=== PATIENT | female | born 1985 | race Caucasian/White ===

== ENCOUNTER 2018-02-09 11:56 | Emergency (ER) | payer OTHER ==
[2018-02-09 12:26] VITALS: BMI 24.9
[2018-02-09] MEDS ORDERED: Albuterol 0.083% Inhal Sol (2.5 mg/3 mL) UD ONE (13:40)
--- NOTE | 2018-02-11 14:17 | OBHP ---
Datetime: 02/09/2018 12:35 IP Adm Impression: , intrauterine ; No Active Labor; Intact Membranes IP Admit Plan: Discharge home Admit Comment, IP Provider: 32 yo F EGA 20.3 based on MARQUIS of 06/26/2018 presents to the PREM wi th vaginal spotting of blood, cough, productive sputum and fever. Reports spotting since the morning . Denies profuse vaginal bleeding. Fever, cough and productive yellow sputum for 3 days. Taken tyleno l x2 thismorning and Temp was 97.5. +: FM, ; denies: lof, ctx, cp/sob/n/v/dysuria OB: Dr. Douglas Last sexual activity: since dx of obhx: uncomplicated gyne: denies hx of STI, pap neg Med Hx: hypothyroid and RA Rx: Levothyroxine 125 mcg 6 days/week; pnv Famhx: DM/HTN/dyslipidemia Surg: none soc: Denies: smoking, alcohol, illicit drugs NKDA A: AAOX3, Cardiac: s1s2 no murmurs Lungs: phlegmatous cough abdomen: gravid doppler: hr 152 Speculum: no pooling of amniotic fluid in vaginal vault. No vaginal bleeding Pelvic: cervix closed. negative for CMT P:32 yo F IUP 20.3. No Active Bleeding. Afebrile; stable Dc to ER for flu eval case dw Dr. Cammie Rodrigues MD PGY1. Pt was seen and discussed with the Patient and I agree with the above. Pelvic Type - PN: Adequate Extremities - PN: Normal Abdomen - PN: Normal Back - PN: Normal Breast - PN: Not Done Lungs - PN: Normal Heart - PN: Normal Thyroid - PN: Not Done Neurologic - PN: Normal HEENT - PN: Normal General - PN: Normal FHR - Baseline A Provider: 152 Pool Provider: Negative EGA AdmitDate IP: 20.3 Vital Signs Provider: Reviewed; Within Normal Limits IP Chief Complaint: Vaginal bleeding; Maternal discomfort Dilatation, Provider: closed Genitourinary Exam: Normal DTRs - PN: Not Done
== END 2018-02-09 13:00 | disposition home or self-care (01) ==
LOC: H.EROB2 11:56
DX: O26.853 Spotting complicating pregnancy, third trimester (principal); Z3A.20 20 weeks gestation of pregnancy; O99.89 Other specified diseases and conditions complicating pregnancy, childbirth and the puerperium; R05 Cough; R50.9 Fever, unspecified

== ENCOUNTER 2018-02-09 13:10 | Emergency (ER) | payer OTHER ==
[2018-02-09 13:11] VITALS: BMI 24.9
[2018-02-09 13:15] VITALS: BP 109/79; PULSE 96; RESP 18; TEMP 97.8; O2SAT 99
[2018-02-09] MEDS ORDERED: Albuterol 0.083% Inhal Sol (2.5 mg/3 mL) UD IH STA (13:34)
--- NOTE | 2018-02-09 14:38 | ED PDOC ---
History of Present Illness History of Present Illness: 32 y/o female who is 20 weeks presents to the ED with a flu like symptoms. Patient was cleared by by L & D prior to arrival. She admits to having a fever in the past week for 3 days which has subsided. Maximum temperature was 100.5. Patient complains of a productive cough for the past five days. Otherwise: (-) vomit (-) diarrhea (-) chest pain, (-) dyspnea, (-) SOB, (-) travel HPI: Influenza Time Seen by Provider: 02/09/18 13:31 Chief Complaint: Flu-like Symptoms Chief Complaint (Provider): Flu-like Symptoms History Per: Patient Exam Limitations: no limitations Have you had recent travel within the past 21 days to any of: No Onset/Duration Of Symptoms: Days (x5) Risk factors for flu complications: Yes: (20 weeks) Past Medical History Reviewed: Historical Data, Nursing Documentation, Vital Signs Vital Signs: Last Vital Signs Temp 97.8 F 02/09/18 13:12 Pulse 96 H 02/09/18 13:12 Resp 18 02/09/18 13:12 BP 109/79 02/09/18 13:12 Pulse Ox 99 02/09/18 13:12 - Medical History PMH: No Chronic Diseases - Surgical History Surgical History: No Surg Hx - Family History Family History: States: Unknown Family Hx - Social History Current smoker - smoking cessation education provided: No Ex-Smoker (has not smoked in the last 12 months): No Alcohol: None Drugs: Denies - Home Medications Home Medications: Ambulatory Orders Medication Instructions Recorded Albuterol 0.083% [Albuterol 3 ml IH Q4 #100 neb 02/09/18 Sulfate 3 Ml] Azithromycin [Zithromax] 250 mg PO DAILY #4 tab 02/09/18 Levothyroxine [Synthroid] 125 mcg PO QD6 02/09/18 Nebulizer [Aeroeclipse II] 1 each MC DAILY #1 each 02/09/18 Multivit/Folic Acid/I 1 tab PO DAILY 02/09/18 [ Plus] - Allergies Allergies/Adverse Reactions: Allergies Allergy/AdvReac Type Severity Reaction Status Date / Time No Known Allergies Allergy Verified 02/09/18 12:26 Review of Systems ROS Statement: Except As Marked, All Systems Reviewed And Found Negative Constitutional: Positive for: Fever (Has subsided) Cardiovascular: Negative for: Chest Pain Respiratory: Positive for: Cough (x5 days), Other (Difficulty Breathing). Negative for: Shortness of Breath Gastrointestinal: Negative for: Vomiting, Diarrhea Physical Exam - Reviewed Nursing Documentation Reviewed: Yes Vital Signs Reviewed: Yes - Physical Exam Comments: GENERAL APPEARANCE: Patient is awake, alert, oriented x 3, in no acute distress. SKIN: Warm, dry; (-) cyanosis. EYES: (-) conjunctival pallor. ENMT: Mucous membranes moist. Airway patent: (-) stridor. Pharynx: (-) swelling, (-) erythema, (-) exudate. NECK: (-) tenderness, (-) stiffness, (-) lymphadenopathy. CHEST AND RESPIRATORY: (+) slight wheeze bilaterally, (-) rhonchi, (-) rales, ( -) pleural rub; breath sounds equal bilaterally. HEART AND CARDIOVASCULAR: (-) irregularity; (-) murmur, (-) gallop. ABDOMEN AND GI: Soft; gravid abdomen, (-) tenderness. EXTREMITIES: (-) deformity; (-) edema. NEURO AND PSYCH: Mental status as above. Cranial nerves grossly intact; strength symmetric. Medical Decision Making Medical Decision Making: Time: 13:12 Impression: Bronchitis r/o influenza Initial Plan: * Nebulizer Treatment Albuterol 2.5 mg IH * Influenza Test Patient remains awake, alert, oriented x 3 and is sitting comfortably, speaking in full sentences. On exam, neck is supple, lungs are clear, abdomen is soft and non tender, heart is at regular rate and rhythm. Advised to follow up with OBGYN. Advised to take medication as prescribed. Return to the emergency room at any time for any new or worsening symptoms. Patient states she fully agrees with and understands discharge instructions. States that she agrees with the plan and disposition. Verbalized and repeated discharge instructions and plan. I have given the patient opportunity to ask any additional questions. Scribe Attestation: Documented by Lora Arevalo acting as a scribe Rocio Lambert PA-C. Scribe Attestation: All medical record entries made by the Scribe were at my direction and personally dictated by me. I have reviewed the chart and agree that the record accurately reflects my personal performance of the history, physical exam, medical decision making, and the department course for this patient. I have also personally directed, reviewed, and agree with the discharge instructions and disposition. - ECG O2 Sat by Pulse Oximetry: 99 (RA) Pulse Ox Interpretation: Normal Disposition - Clinical Impression Clinical Impression: Bronchitis - Patient ED Disposition Is Patient to be Admitted: No Counseled Patient/Family Regarding: Diagnosis, Need For Followup, Rx Given - Disposition Disposition: Routine/Home Disposition Time: 15:00 Condition: STABLE Additional Instructions: Thank you for letting us take care of you today. You were treated for acute bronchitis. The emergency medical care you received today was directed at your acute symptoms. If you were prescribed any medication, please fill it and take as directed. It may take several days for your symptoms to resolve. Return to the Emergency Department if your symptoms worsen, do not improve, or if you have any other problems. Please contact your OB doctor in 2 days for re-evaluation and follow up. Bring any paperwork you were given at discharge with you along with any medications you are taking to your follow up visit. Our treatment cannot replace ongoing medical care by a primary care provider (PCP) outside of the emergency department. Thank you for allowing the [facility] team to be part of your care today. Prescriptions: Albuterol 0.083% [Albuterol Sulfate 3 Ml] 3 ml IH Q4 #100 neb Azithromycin [Zithromax] 250 mg PO DAILY #4 tab Nebulizer [Aeroeclipse II] 1 each MC DAILY #1 each Instructions: Acute Bronchitis Forms: [employer] (Lao), [facility] ED School/Work Excuse
== END 2018-02-09 15:21 | disposition home or self-care (01) ==
LOC: H.ER 13:10
DX: J40 Bronchitis, not specified as acute or chronic (principal); Z33.1 Pregnant state, incidental

== ENCOUNTER 2018-02-27 00:03 | Emergency (ER) | payer OTHER ==
[2018-02-27] MEDS ORDERED: Lactated Ringer's 1,000 ML IV SCH ×2 (01:15→02:45)
[2018-02-27 02:11] LABS: HEMOGLOBIN 11.4 g/dL (12.0-16.0); MEAN CELL VOLUME 87.5 fl (81.0-99.0); MEAN CORPUSCULAR HEMOGLOBIN 28.8 pg (27.0-31.0); MEAN CORPUSCULAR HGB CONC 32.9 g/dL (33.0-37.0); RBC 3.95 Mil/uL (3.80-5.20); WHITE BLOOD COUNT 10.4 K/uL (4.8-10.8)
[2018-02-27 02:12] LABS: BASO # 0.1 K/uL (0.0-0.2); BASO % 0.7 % (0.0-2.0); EOS # 0.1 K/uL (0.0-0.7); EOS % 1.2 % (0.0-4.0); LYMPH # 3.1 K/uL (1.0-4.3); MEAN PLATELET VOLUME 9.2 fl (7.2-11.7); MONO # 0.8 K/uL (0.0-0.8); MONO % 7.7 % (0.0-10.0); NEUT # 6.3 K/uL (1.8-7.0); NEUT % 60.4 % (50.0-75.0); NRBC % 0.1 % (0.0-0.0)
[2018-02-27 03:33] LABS: SQUAMOUS EPITHIAL < 1 /hpf (0-5); URINE BILIRUBIN NEGATIVE (NEGATIVE); URINE BLOOD SMALL (NEGATIVE); URINE CLARITY SLIGHTY-CLOUDY (Clear); URINE COLOR YELLOW (YELLOW); URINE GLUCOSE (UA) NEG (Normal); URINE LEUKOCYTE ESTERASE NEG Leu/uL (Negative); URINE PROTEIN NEGATIVE (NEGATIVE); URINE UROBILINOGEN 0.2-1.0 mg/dL (0.2-1.0)
--- NOTE | 2018-02-27 07:38 | OBHP ---
Datetime: 02/27/2018 00:57 IP Adm Impression: , intrauterine IP Admit Plan: Observation/Evaluation Admit Comment, IP Provider: CC: vaginal bleeding HPI: 32 YO @ 22.1 wks IUP presents to PREM for vaginal bleeding. Pt states that lst night around 10:00PM pt had 1x episode of abdominal pain which subsequently resolved. The pain was followed by 1x of "gush of blood" from pts vagina around 11:20 PM. Blood is qunatified as 1 light pad-ful. Pt states that she does not have any more vaginal bleeding, or pain at this time. Good FM, no LOF (per pt), no ctx. MD: Rafael ObHx: 1 SAB in the past GynHx: denies STIs PMH: hypothyroidism SurgHx: denies SH: denies ETOH, smoking and illicit drug use Allergies: NKDA Meds: PNV and levothyroxine 125mg PE: GEN: nervous, NAD Cardio: S1S2 no additional heart sounds resp: clear breath sounds b/l Abdomen: gravid, NT, BS+ Neuro: AAOx3 Ext: no edema noted, NT FM: 145, Cervx speculum: small clot of blood noted in the vaginal vault, cervix is closed A/P: 32 YO @ 22.1 IUP (MARQUIS 07/02) is evaluated for vaginal bleeing. Not currently bleeding, -ob limited ultrasound -IVF -Blood work -UA -will continue to monitor Case discussed with attending, Dr. Enrico Rangel, PGY I OB Hospitalist note: Pt seen and examined with PGY1...agree with note. obtain sono this morning/C LM MAHNDO Pelvic Type - PN: Adequate Extremities - PN: Normal Abdomen - PN: Normal Breast - PN: Not Done Lungs - PN: Normal Heart - PN: Normal Thyroid - PN: Not Done Neurologic - PN: Normal HEENT - PN: Normal General - PN: Normal FHR - Baseline A Provider: 145 Pool Provider: Negative IP Hx Assessment: The History has been Reviewed and is Current EGA AdmitDate IP: 22.1 Vital Signs Provider: Reviewed IP Chief Complaint: Vaginal bleeding NICHD Variability Prov Fetus A: NICHD Accel Fetus A IP Provider: FHR Category Provider Fetus A: Dilatation, Provider: closed Genitourinary Exam: Normal
--- NOTE | 2018-02-27 09:24 | US ---
PROCEDURE: OB Pelvic Ultrasound HISTORY: vaginal bleeding LMP: 09/25/2017 COMPARISON: None available. TECHNIQUE: Transabdominal scanning of the maternal pelvis and a 2nd/ 3rd trimester with image documentation IMPRESSION: Single intrauterine gestation -whose ultrasound biometric parameters are concordant with . This is concordant with the gestational age by LMP of. cardiac activity present and unremarkable. presentation -. No previa .. . FINDINGS: UTERUS: There is a single intrauterine gestation with cardiac activity 150 beats per minute. . presentation cephalic. Placenta anterior and clear (greater than 2 cm from the cervix). Multiple biometric parameters correspond to a menstrual age per ultrasound of 21 weeks 5 days 1 week 4 days standard deviation. Verónica-gestational hemorrhage: None. Date of delivery (Ultrasound estimated) : 07/05/2018 Images of the uterus portions visualize appear unremarkable. Assessment for anatomy limited. No gross abnormality seen CERVIX: Measures 3.64 cm. Long and closed. No cervical abnormality seen. FREE FLUID: None. OTHER FINDINGS: Neither ovary visualized. IMPRESSION: Single intrauterine gestation with normal cardiac activity whose menstrual age by ultrasound parameters is 21 weeks 5 days per ultrasound. The Clinical LMP gestational age is 22 weeks 1 day. Anterior placenta. No gross placental pathology noted. Placenta is clear from the internal cervical os (greater than 2 cm.)
--- NOTE | 2018-02-27 09:55 | OBPN ---
Datetime: 02/27/2018 09:52 IP Progress Impression Other: antepartum bleeding IP Progress Plan: Discharge FHR - Baseline A Provider: 140's IP Progress Note Comment: 32 yo at 22+1 wks for vaginal bleeding, now w/ brown spotting Pt reports that she was working out yesterday, deneis LOF, ctxns, abdominal pain, reports FM Brown spotting on pad Discharge home w/ bleeding precautions NICHD Variability Prov Fetus A: Moderate 6-25bpm Datetime: 02/27/2018 00:57 Pool Provider: Negative Vital Signs Provider: Reviewed NICHD Accel Fetus A IP Provider: FHR Category Provider Fetus A: Dilatation, Provider: closed
--- NOTE | 2018-02-27 09:58 | OBDCSUM ---
Datetime: 02/27/2018 09:51 Discharged to, Provider: Home Follow up at, Provider: Dr. Douglas Disch Instr Activity: Bedrest Disch Instr Diet: Regular Discharge Instructions, Provider: Routine instructions given Discharge Time: 02/27/2018 09:54 Follow up in weeks, Provider: 03/05/2018 Disch Referrals: None Disch Activity Restrictions: No lifting; No sexual activity Discharge Diagnosis Prov Other: Antepartum bleeding
[2018-02-27 14:39] VITALS: BP 109/63; PULSE 62; RESP 16; TEMP 98.8; O2SAT 100
== END 2018-02-27 09:51 | disposition home or self-care (01) ==
LOC: H.EROB2 00:03
DX: O46.92 Antepartum hemorrhage, unspecified, second trimester (principal); Z3A.22 22 weeks gestation of pregnancy
CPT/HCPCS: 76815; 81003; 85025; 86850; 86900; 99284; J7120

== ENCOUNTER 2018-06-27 19:47 | Inpatient (IN) | payer OTHER ==
[2018-06-27 21:14] VITALS: BMI 29.5
[2018-06-27 21:50] LABS: BASO # 0.1 K/uL (0.0-0.2); BASO % 0.5 % (0.0-2.0); EOS # 0.1 K/uL (0.0-0.7); EOS % 0.8 % (0.0-4.0); LYMPH # 2.7 K/uL (1.0-4.3); LYMPH % 26.8 % (20.0-40.0); MEAN CELL VOLUME 84.6 fl (81.0-99.0); MEAN CORPUSCULAR HGB CONC 33.1 g/dL (33.0-37.0); MONO # 0.8 K/uL (0.0-0.8); NEUT # 6.5 K/uL (1.8-7.0); NEUT % 63.9 % (50.0-75.0); NRBC % 0.1 % (0.0-0.0); RBC 3.94 Mil/uL (3.80-5.20); RED CELL DISTRIBUTION WIDTH 17.1 % (11.5-14.5); WHITE BLOOD COUNT 10.2 K/uL (4.8-10.8)
[2018-06-27] MEDS ORDERED: Lactated Ringer's 1,000 ML IV ONE (22:12)
[2018-06-27] MEDS ORDERED: Lactated Ringer's 1,000 ML IV SCH (22:15)
--- NOTE | 2018-06-28 00:14 | OBADHP ---
Datetime: 06/28/2018 00:13 FHR - Baseline A Provider: 140s-150s Vital Signs Provider: Reviewed; Within Normal Limits NICHD Variability Prov Fetus A: Moderate 6-25bpm NICHD Accel Fetus A IP Provider: 15X15 Dilatation, Provider: FT Effacement, Provider: 25 Station, Provider: -3 Datetime: 06/27/2018 22:43 Admit Comment, IP Provider: HPI: 32 y/o with PMHx significant for Hypothyroidsm and Rheumato id arthritis, with 40 weeks of GA and EDC 06/27/18, presents to EDOB with c/o vaginal bleeding, patient states that the bleeding started at 7:30PM today, was like her menses in volume and later decreased the volume and now is just vaginal spotting, also she c/o mild pelvic pain that is intermittent with no radiation, associated with mild contractions Q 10 min. The patient reports frequent movement s. Patient denies any loss of fluid, denies recent sexual activity, trauma, headache, blurry vision, chest pain, SOB, N/V/D, dysuria, or palpitations. OBGYN: The patient had f/u with MFM in this due to her hx of Hypothyroidsm. Provider: Dr. Douglas LMP: 09/25/17. First US: 12/25/17. Last US: 06/25/18. EDC: 06/27/18. PMH: Hypothyroidsm, RA ( RA:patient reports is stable w/o medications). MEDS: Synthroid 125 mcg PO QD FMHx: Mother has DM. SocialHx: Denies tobacco/drug/ETOH use. SurgHx: None. Allergies: NKA. ROS: Unremarkable, except as per HPI. LABS: HIV negative, HBsAg negative, GBS on 06/04/18 negative, Rubella negative/noninmune, GC/CL bot h nonreactive, RPR nonreactive, ABORh B+, Ab negative. Physical Exam GEN: NAD, appears comfortable in bed. HEENT: Normocephalic, EOMI, mucous membrane are moist. CV: RRR, S1 S2 present, no murmurs noted RESP: CTA bilateral ABD: Gravid, soft. LE: no edema, Armani's negative. A/P 32 y/o with term EGA of 40 weeks and EDC 06/27/18, with PMH significant for hypoth yroidsm, now with vaginal spotting and irregular contractions for 4 hours. Patient has reassuring FHR tracing. Plan: -Admit to L _ D to continue monitoring -VS Q4 H - monitoring -CBC w/Diff -IVF hydration with LR 125 ml/hr Case discussed with attending Dr. Alva. Lala Lynne MD PGY1 Addendum: FHT category I. Plan to admit patient for IOL due to prodromal labor and vaginal bleeding. Discu ssed plan with patient and all patient questions answered. Artie Presentation-Admit: Vertex Gestation - Est Wks by US: 40.0 IP Hx Assessment: The History has been Reviewed and is Current IP Chief Complaint: Uterine contractions; Vaginal bleeding FHR Category Provider Fetus A: Category I NICHD Decel Fetus A IP Provider: None EGA AdmitDate IP: 40.0 IP Adm Impression: Term, intrauterine IP Admit Plan: Admit to unit Datetime: 02/27/2018 00:57 Pelvic Type - PN: Adequate Extremities - PN: Normal Abdomen - PN: Normal Breast - PN: Not Done Lungs - PN: Normal Heart - PN: Normal Thyroid - PN: Not Done Neurologic - PN: Normal HEENT - PN: Normal General - PN: Normal Pool Provider: Negative Genitourinary Exam: Normal Datetime: 02/09/2018 12:35 Back - PN: Normal DTRs - PN: Not Done
--- NOTE | 2018-06-28 00:16 | OBPN ---
Datetime: 06/28/2018 00:13 IP Informed Consent Obtain: Induction of Labor; Risks, Benefits and Alternatives Discussed IP Procedures: Sterile Vag Exam IP Progress Plan: Induction FHR - Baseline A Provider: 140s-150s IP Progress Note Comment: Category I FHT. Cervadil placed vaginally. Discussed plan with patient a nd all patient questions answered. Vital Signs Provider: Reviewed; Within Normal Limits NICHD Accel Fetus A IP Provider: 15X15 FHR Category Provider Fetus A: Category I NICHD Variability Prov Fetus A: Moderate 6-25bpm Dilatation, Provider: FT Effacement, Provider: 25 Station, Provider: -3 NICHD Decel Fetus A IP Provider: None Datetime: 06/27/2018 22:43 Gestation - Est Wks by US: 40.0 Presentation-Admit: Vertex
--- NOTE | 2018-06-28 02:56 | OBPN ---
Datetime: 06/28/2018 02:54 FHR - Baseline A Provider: 160s-170s IP Progress Note Comment: FHT with tachycardia. Cervadil removed, pt positioning, O2, IVF hydration . Continue monitoring. Discussed with patient and all patient questions answered. Vital Signs Provider: Reviewed; Within Normal Limits NICHD Accel Fetus A IP Provider: 15X15 FHR Category Provider Fetus A: Category II NICHD Variability Prov Fetus A: Moderate 6-25bpm NICHD Decel Fetus A IP Provider: None
[2018-06-28] MEDS ORDERED: Nalbuphine HCL 10 mg/ml Ampule IVP PRN (05:02)
[2018-06-28] MEDS ORDERED: Nalbuphine 20 mg/ml Inj (1 ml) ONE (05:12)
[2018-06-28 06:08] VITALS: O2SAT 100
[2018-06-28] MEDS ORDERED: Fentanyl/Bupivacaine HCl 250 ML EPI ONE (08:22)
[2018-06-28] MEDS ORDERED: Oxytocin 30 UNIT 30 UNITS/500 ML BAG IV ONE ×2 (10:05→10:10)
[2018-06-28] MEDS ORDERED: OXYTOCIN/0.9 % NS 20 UNIT/1,000 ML BAG IV SCH (10:15)
[2018-06-28] MEDS ORDERED: Lidocaine Hydrochloride 20 ML INJ ONE (17:23)
--- NOTE | 2018-06-28 17:54 | OBDS ---
DELIVERY PERSONNEL Delivery Doctor: Pancho Douglas MD Last Repairer: Jesús Benton RN/ Spring Crowley RN Anesthesiologist: Gordo Roa MD MATERNAL INFORMATION Delivery Anesthesia: Epidural Estimated Blood Loss (ml): 200 Placenta Cultured: No Provider Comments: Called to evaluate the patient secondary to maternal exhaustion. Vaginal exam rev ealed left occiput anterior +3 station. Informed consent was obtained for a vacuum extraction. The va cuum was applied and gentle traction was applied while the mother was using her expulsive forces. Pat deana performed 3 pushes with delivery of the 's head. The vacuum was then removed. The baby was delivered at 1728 atraumatically placed on maternal chest cord was clamped and cut and the wa s handed off to waiting pediatricians. The placenta was then labored at 1735 and intact. The estimate d blood loss was 200 mL there was a second-degree laceration which was repaired with 2-0 rapide. The mother tolerated the procedure well the baby went to the well baby nursery with Apgars of 9 and 9 abisai ing 3145 g LABOR SUMMARY EDC: 06/27/2018 00:00 No. Babies in Womb: 1 Attempted: No Labor Anesthesia: Epidural LABOR INFORMATION Onset of Labor: 06/28/2018 07:00 Complete Dilatation: 06/28/2018 09:25 Cervical Ripening Agents: Cervidil Oxytocin: N/A Group B Beta Strep: Negative Antibiotics # of Doses: na Antibiotics Time of Last Dose: na Steroids Given: None Reason Steroids Not Administered: Not Applicable MEMBRANES Membranes Rupture Method: Spontaneous Rupture of Membranes: 06/28/2018 02:54 Amniotic Fluid Color: Clear Amniotic Fluid Amount: Large Amniotic Fluid Odor: None STAGES OF LABOR Stage 1 hrs: 2 Stage 1 min: 25 VAGINAL DELIVERY Episiotomy: Median Laceration Extension: Second Degree Laceration Type: None Laceration Repair: Yes Sponge Count Correct: Yes Sharps Count Correct: Yes IDENTIFICATION/MEDS BABY A ID Band Number: [id number]
[2018-06-28] MEDS ORDERED: Benzocaine/Menthol SPRAY TOP PRN (18:05)
[2018-06-28] MEDS ORDERED: Oxycodone/Acetaminophen 5/325 mg Tab PO PRN ×2 (18:05→21:34)
[2018-06-29] MEDS: Levothyroxine 125 MCG TAB PO SCH (06:00)
[2018-06-29] MEDS ORDERED: Levothyroxine 125 MCG TAB PO SCH (06:30)
[2018-06-29 07:46] LABS: HEMOGLOBIN 8.9 g/dL (12.0-16.0); MEAN CELL VOLUME 84.7 fl (81.0-99.0); MEAN CORPUSCULAR HEMOGLOBIN 27.8 pg (27.0-31.0); MEAN CORPUSCULAR HGB CONC 32.8 g/dL (33.0-37.0); RBC 3.2 Mil/uL (3.80-5.20); RED CELL DISTRIBUTION WIDTH 17.2 % (11.5-14.5); WHITE BLOOD COUNT 18.1 K/uL (4.8-10.8)
--- NOTE | 2018-06-29 10:01 | OBPPN ---
Datetime: 06/29/2018 08:10 PP Pain Prov: Within normal limits PP Pain Prov comment: Relieved by Motrin PP Nausea Prov: Denies PP Flatus Prov: No PP BM Prov: No PP BM Prov comment: Feeling bloated, no flatus yet PP Abdomen/Uterus Prov: Normal PP Lochia Prov: Normal PP Comments Phys Exam Prov: General: Alert, oriented and in no acute distress Abdomen: fundus is firm, just above umbilicus Ext: Nonpitting edema present PP Impression Prov: Normal progression PP Plan Prov: Continue present management PP Impression Other Prov: 32yo G2 now P1 on PPD #1 after VAVD PP Plan Other Prov: PRN Motrin available, docusate PP Progress Note Prov: Anticipate discharge likely tomorrow. Reviewed normal post course. Addendum by Dr. Perez: I have evaluated patient independently and I agree with the above IP PP Procedures: None
[2018-06-29] MEDS: Benzocaine/Menthol SPRAY TOP PRN (20:18)
[2018-06-30] MEDS: Levothyroxine 125 MCG TAB PO SCH (06:21)
[2018-06-30 07:37] LABS: HEMOGLOBIN 9.3 g/dL (12.0-16.0); MEAN CELL VOLUME 85.5 fl (81.0-99.0); MEAN CORPUSCULAR HGB CONC 32.8 g/dL (33.0-37.0); RBC 3.31 Mil/uL (3.80-5.20); RED CELL DISTRIBUTION WIDTH 17.4 % (11.5-14.5); WHITE BLOOD COUNT 17.6 K/uL (4.8-10.8)
[2018-06-30] MEDS ORDERED: Measles, Mumps, and Rubella 0.5 ML VIAL SC ONE (09:05)
--- NOTE | 2018-06-30 09:12 | OBPPN ---
Datetime: 06/30/2018 09:08 PP Pain Prov: Within normal limits PP Nausea Prov: Denies PP Flatus Prov: Yes PP BM Prov: Yes PP Breasts Prov: Normal PP Heart Prov: Normal PP Lungs Prov: Normal PP Abdomen/Uterus Prov: Normal PP Lochia Prov: Normal PP Vulva/Perineum Prov: Normal PP CVA Tenderness Prov: Normal PP Extremities Prov: Normal PP Progress Prov: Normal PP Impression Prov: Normal progression PP Plan Prov: Continue present management PP Progress Note Prov: She feels fine ready to fgo home A: S/P day 2 Anemia - asymptomatic Rubella Non Immune PLAN : discharge home and f/u6w MMR prior to discharge Vital Signs Provider PP: Reviewed; Within Normal Limits
[2018-06-30] MEDS: Benzocaine/Menthol SPRAY TOP PRN (09:47)
[2018-06-30 23:00] VITALS: BP 115/69; PULSE 86; RESP 20; TEMP 97.7
== END 2018-06-30 18:59 | disposition home or self-care (01) | DRG 775 ==
LOC: H.EROB2 19:47 → H.L&D 22:12 → H.OB/GYN 06-28 21:53
PROVIDERS: ADMIT Obstetrics & Gynecology; ATTEND Obstetrics & Gynecology
PROC: 4A1HXCZ Monitoring of Products of Conception, Cardiac Rate, External Approach (ICD-10-PCS; 2018-06-27)
PROC: 0W8NXZZ Division of Female Perineum, External Approach (ICD-10-PCS; principal; 2018-06-28)
PROC: 10E0XZZ Delivery of Products of Conception, External Approach (ICD-10-PCS; 2018-06-28)
DX: O75.81 Maternal exhaustion complicating labor and delivery (principal); O70.1 Second degree perineal laceration during delivery; Z37.0 Single live birth; Z3A.40 40 weeks gestation of pregnancy; Z83.3 Family history of diabetes mellitus; O99.02 Anemia complicating childbirth